=== PATIENT | female | born 1975 | race Caucasian/White ===

== ENCOUNTER 2016-10-22 14:05 | Emergency (ER) | payer OTHER ==
[2016-10-22 14:06] VITALS: BMI 28.1
[2016-10-22 14:13] VITALS: BP 120/81; PULSE 79; TEMP 98.1; O2SAT 100
--- NOTE | 2016-10-22 16:15 | C.PDOC ---
History Of Present Illness 40 y/o female c/o bilateral back pain x 2 days that started after opening window when hot and had cold breeze hit her on the back. pt feels like she ' has a cold in her back'. pt taking naproxen 500 bid x 2 days with minimal relief. pt sts pain worse with movement, denies cp and sob, no fever or chills. Time Seen by Provider: 10/22/16 14:55 Chief Complaint (Nursing): Rib Injury History Per: Patient History/Exam Limitations: no limitations Onset/Duration Of Symptoms: Days (2) Quality Of Discomfort: "Pain" Severity: Moderate Pain Scale Rating Of: 6 Previous Symptoms: Back Pain Past Medical History Reviewed: Historical Data, Nursing Documentation, Vital Signs Vital Signs: Last Vital Signs Temp 98.1 F 10/22/16 14:09 Pulse 79 10/22/16 14:09 Resp 20 10/22/16 16:22 BP 120/81 10/22/16 14:09 Pulse Ox 100 10/23/16 00:15 - Medical History PMH: No Chronic Diseases Surgical History: No Surg Hx Family History: States: Unknown Family Hx - Social History Hx Tobacco Use: No Hx Alcohol Use: No Hx Substance Use: No - Immunization History Hx Tetanus Toxoid Vaccination: No Hx Influenza Vaccination: No Review Of Systems Constitutional: Negative for: Fever, Chills Cardiovascular: Negative for: Chest Pain, Palpitations Respiratory: Negative for: Cough, Shortness of Breath, SOB with Excertion, Pleuritic Pain Gastrointestinal: Negative for: Vomiting, Abdominal Pain Musculoskeletal: Positive for: Back Pain Skin: Negative for: Rash Neurological: Negative for: Weakness, Numbness Physical Exam - Physical Exam Appears: Non-toxic, No Acute Distress Skin: Normal Color, Warm, Dry Head: Atraumatic, Normacephalic Neck: Normal ROM, No Midline Cervical Tenderness Chest: Symmetrical, No Deformity, No Tenderness Cardiovascular: Rhythm Regular, No Murmur Respiratory: Normal Breath Sounds, No Rales, No Rhonchi, No Wheezing Back: Normal Inspection, No Muscle Spasm, Other (mild tenderness to upper back on both sides along rhomboid and lateral ribs, no step off or crepitus noted. ) Neurological/Psych: Oriented x3, Normal Speech, Normal Cognition, Normal Motor, Normal Sensation ED Course And Treatment O2 Sat by Pulse Oximetry: 100 Medical Decision Making Medical Decision Making: pt with upper back pain after being in draft, worse with movement, lungs cta, no cp or sob. will treat for musculoskeletal pain. Disposition Counseled Patient/Family Regarding: Diagnosis, Need For Followup - Disposition Referrals: [facility] [Outside] Disposition: HOME/ ROUTINE Disposition Time: 16:14 Condition: GOOD Additional Instructions: Take 2 tablets of Naproxen twice a day. Avoid cold drafts. Follow up in medical cliinic in a few days. Return to ER for any worsening symptoms, Instructions: Back Exercises (ED) Forms: General Discharge Instructions - Clinical Impression Clinical Impression: Thoracic back pain
[2016-10-22 16:23] VITALS: RESP 20
== END 2016-10-22 16:22 | disposition home or self-care (01) ==
LOC: C.ER 14:05
DX: M54.6 Pain in thoracic spine (principal)
CPT/HCPCS: 96372; 99284; J1885

== ENCOUNTER 2017-05-17 13:35 | Emergency (ER) | payer SELFPAY ==
[2017-05-17 13:36] VITALS: BMI 28.1
[2017-05-17 13:50] VITALS: O2SAT 99
--- NOTE | 2017-05-17 15:12 | C.PDOC ---
History Of Present Illness 41 year old female presents to the ED for evaluation of left groin pain intermittent for the past 3 days. Patient admits this pain is associated with her menstrual period and has happened in the past , but today was severe. Otherwise, Patient denies fever, chills, nausea, vomit, diarrhea, dizziness, back pain, vaginal bleeding, vaginal discharge. Ambulatory in ED with stable gait, not in any apparent distress. Time Seen by Provider: 05/17/17 14:42 Chief Complaint (Nursing): Abdominal Pain History Per: Patient History/Exam Limitations: no limitations Onset/Duration Of Symptoms: Intermittent Episodes (3 days) Current Symptoms Are (Timing): Gone Location Of Pain/Discomfort: Other (Left groin) Radiation Of Pain To:: None Quality Of Discomfort: "Pain" Associated Symptoms: denies: Fever, Chills, Nausea, Vomiting Recent travel outside of the [place]: No Additional History Per: Patient Abnormal Vaginal Bleeding: No Past Medical History Reviewed: Historical Data, Nursing Documentation, Vital Signs Vital Signs: Last Vital Signs Temp 98.6 F 05/17/17 13:47 Pulse 80 05/17/17 13:47 Resp 18 05/17/17 13:47 BP 131/83 05/17/17 13:47 Pulse Ox 99 05/17/17 16:14 - Medical History PMH: Depression Surgical History: No Surg Hx Family History: States: Unknown Family Hx - Social History Hx Tobacco Use: No Hx Alcohol Use: No Hx Substance Use: No - Immunization History Hx Tetanus Toxoid Vaccination: No Hx Influenza Vaccination: No Review Of Systems Constitutional: Negative for: Fever, Chills Cardiovascular: Negative for: Chest Pain, Palpitations Respiratory: Negative for: Cough, Shortness of Breath Gastrointestinal: Positive for: Other (Left groin pain). Negative for: Nausea, Vomiting Genitourinary: Negative for: Dysuria, Incontinence Skin: Negative for: Rash Neurological: Negative for: Weakness, Numbness Physical Exam - Physical Exam Appears: Non-toxic, No Acute Distress Skin: Normal Color, Warm, Dry, No Rash Head: Normacephalic Eye(s): bilateral: PERRL Nose: No Discharge, No Deformity Oral Mucosa: Moist, No Drooling Throat: No Erythema, No Drooling Neck: Trachea Midline, Supple Cardiovascular: Rhythm Regular, No Murmur Respiratory: No Decreased Breath Sounds, No Accessory Muscle Use Gastrointestinal/Abdominal: Soft, No Tenderness, No Organomegaly, No Distention , No Guarding, No Rebound, Other (mild left groin tenderness) Back: No CVA Tenderness Pelvic: Normal Speculum Exam, No Vaginal Bleeding, No Vaginal Discharge, No Cervical Motion Tenderness Extremity: No Deformity, No Swelling Neurological/Psych: Oriented x3, Normal Speech, Normal Cognition ED Course And Treatment - Laboratory Results Result Diagrams: 05/17/17 15:24 05/17/17 15:24 Lab Interpretation: No Acute Changes Urine POC: Negative O2 Sat by Pulse Oximetry: 99 (On RA) Pulse Ox Interpretation: Normal Progress Note: Plan: -Blood work, UA ordered. -IV fluids given. -Toradol 30 mg IVP given. -US transvaginal ordered. On re-evaluation, pt is afebrile, hemodynamicaly stable. non-toxic. Tolerate Po well in ED. PulsEOx 99% RA. ENT : no acute findings. neck: Supple, (-) JVD. Lungs: CTA B/L, BS equal B/L. ABd : benign, (-) guarding, (-) rebound. Back: (-) CVA tenderness. Blood work review and appears normal. UA results c/w (+)UTI. US results (+) Right complex cyst, Left small cyst, (+) uterine fibroid, no other acute abnormalities. Ucx- pending. Pt advised and ref/. to f/u with PMD, [employer] [employer] in 2-3 days for re-eval. return to ED if any worsening or new changes. Disposition Counseled Patient/Family Regarding: Studies Performed, Diagnosis, Need For Followup, Rx Given - Disposition Referrals: [facility] [Outside] [facility] [Outside] Disposition: HOME/ ROUTINE Disposition Time: 16:12 Condition: STABLE Additional Instructions: Take medication as prescribed Follow up with PMD and [facility] in 2-3 days for re-evaluation. Return to ED if any worsening or new changes. Prescriptions: Cranberry Fruit Extract [Cranberry] 500 mg PO BID #30 capsule Nitrofurantoin Macrocrystals [Macrobid] 1 cap PO BID #14 cap Instructions: Urinary Tract Infection in Women (ED) Forms: [employer] (Telugu) - Clinical Impression Clinical Impression: UTI (urinary tract infection) - PA / PRE CERTIFICATION SPECIALIST / Resident Statement MD/DO has reviewed & agrees with the documentation as recorded. - Scribe Statement The provider has reviewed the documentation as recorded by the Scribe Jean-Claude Plummer All medical record entries made by the Vicibe were at my direction and personally dictated by me. I have reviewed the chart and agree that the record accurately reflects my personal performance of the history, physical exam, medical decision making, and the department course for this patient. I have also personally directed, reviewed, and agree with the discharge instructions and disposition.
[2017-05-17] MEDS ORDERED: Sodium Chloride 0.9% 1,000 ML IV ONE (15:13)
[2017-05-17] MEDS ORDERED: Sodium Chloride 0.9% 1,000 ML ONE (15:18)
[2017-05-17 15:23] LABS: RBC URINE 22 /hpf (0-3); URINE BACTERIA RARE (<OCC); URINE BILIRUBIN NEGATIVE (NEGATIVE); URINE BLOOD 1+ (NEGATIVE); URINE COLOR Yellow (YELLOW); URINE GLUCOSE (UA) NORMAL (Normal); URINE KETONE NEGATIVE (NEGATIVE); URINE LEUKOCYTE ESTERASE 2+ Leu/uL (Negative); URINE PROTEIN NEGATIVE (NEGATIVE); URINE UROBILINOGEN NORMAL mg/dL (0.2-1.0); WBC URINE 23 /hpf (0-5)
[2017-05-17 15:33] LABS: BASO % 0.7 % (0.0-2.0); EOS # 0.2 K/uL (0.0-0.7); EOS % 2.3 % (0.0-4.0); HEMATOCRIT 38.2 % (34.0-47.0); LYMPH # 2.4 K/uL (1.0-4.3); LYMPH % 32.7 % (20.0-40.0); MEAN CELL VOLUME 83.5 fL (81.0-99.0); MEAN CORPUSCULAR HEMOGLOBIN 27.5 pg (27.0-31.0); MEAN PLATELET VOLUME 9.1 fL (7.2-11.7); MONO # 0.4 K/uL (0.0-0.8); MONO % 5.3 % (0.0-10.0); NRBC % 0.1 % (0.0-2.0); RED CELL DISTRIBUTION WIDTH 14.3 % (11.5-14.5); WHITE BLOOD COUNT 7.4 K/uL (4.8-10.8)
[2017-05-17 15:53] LABS: BLOOD UREA NITROGEN 11 mg/dL (7-17); CALCIUM 8.5 mg/dl (8.6-10.4); CARBON DIOXIDE 25 mmol/L (22-30); CHLORIDE 100 mmol/L (98-107); GFR AFRICAN-AMERICAN > 60; GLUCOSE,RANDOM 88 mg/dL (65-105); POTASSIUM 4.3 mmol/L (3.6-5.2); SODIUM 135 mmol/L (132-148)
[2017-05-17 17:21] VITALS: BP 137/81; PULSE 84; RESP 20; TEMP 98.1
--- NOTE | 2017-05-17 17:39 | US ---
PROCEDURE: TRANSABDOMINAL AND TRANSVAGINAL PELVIC ULTRASONOGRAPHY HISTORY: Left groin tenderness COMPARISON: None available. TECHNIQUE: Ultrasound was carried out using transabdominal as well as transvaginal technique in longitudinal and transverse projections. FINDINGS: Uterus is anteverted and enlarged measuring 10.2 x 6.8 x 7.1 cm with multiple masses scattered throughout the myometrium on a moderate basis. The peripheral margins of the uterus are lobular in contour as result. The endometrium measures 9.8 mm transvaginally, appearing nonfocal. Posterior hypoechoic myoma bridges the submucous and sub serosal cyst spaces measuring 3.3 x 2.7 x 3.4 cm. Second smaller myoma is seen the more mid to inferior posterior uterine fundus measuring 1.7 x 1.5 x 1.4 cm, submucous in position. A sub serosal hypoechoic myoma is identified at the posterior uterine fundus measure 1.7 x 1.6 x 1.8 cm an a sub serosal antro uterine fundus is heterogeneous in echogenicity though predominantly hypoechoic with multiple shadowing calcifications measuring 2.6 x 2.2 x 2.9 cm. The right ovary is mildly prominent measuring 4.6 x 2.8 x 4.1 cm and harbors a 3.3 x 2.6 x 3.2 cm complex cyst which predominantly hypoechoic but did but with internal debris and a hyperechoic central nodule measuring 1.0 x 0.9 x 0.9 cm questionable internal color Doppler blood flow (in the nodule). Arterial color Doppler blood flow seen within the right ovary with no evidence of torsion. The left ovary harbors a simple cyst measuring 2.0 cm greatest dimension with the ovary upper limits normal size is 2.4 x 3.1 x 4.2 cm. IMPRESSION: 1. A mildly enlarged myomatous uterus identified with at least 2 submucous myomata posteriorly. Please see discussion above. Patient is nevertheless otherwise unremarkable. 2. A 3.3 cm complex cyst with a small internal nodule is seen in the right ovary for which clinical correlation is advised as well as follow-up transvaginal ultrasonography in 6-8 weeks.
== END 2017-05-17 17:24 | disposition home or self-care (01) ==
LOC: C.ER 13:35
DX: N39.0 Urinary tract infection, site not specified (principal)
CPT/HCPCS: 76830; 76856; 80048; 81001; 84703; 85025; 87086; 96361; 96374; 99285; J1885; J7040